=== PATIENT | female | born 1940 | race Caucasian/White ===

== ENCOUNTER 2017-02-21 10:09 | Emergency (ER) | payer MEDICARE, BC ==
[~2017-02-21] VITALS: Ht 160 cm; Wt 67.0 kg
[~2017-02-21 10:09] MED LIST: AMOX500T PO; ATEN1TAB73 PO; DARV PO; ESTR.3 PO; LISI10TA PO; OXYM.05%I
[2017-02-21 10:21] VITALS: BP 156/72; PULSE 57; RESP 16; TEMP 98; O2SAT 97
--- NOTE | 2017-02-21 10:44 | PD ---
HPI Chief Complaint: Respiratory Symptoms Time Seen by Provider: 10:30 Travel History International Travel<30 days: No Contact w/Intl Traveler<30days: No Traveled to known affect area: No History of Present Illness HPI This 76-year-old female is complaining of his been exertion. She first noticed it during the summer when she would walk on a hill to get her mail. 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 When she moved down here she was doing a lot of yard work in the heat she would notice it at times she would get quite short of breath. She would lay down and cool off and her breathing would improve. She has not had any edema. She does not have PND or orthopnea. There is a family history of heart disease but she has never had any heart disease. Her only medication is atenolol and simvastatin. She had some discomfort in her neck bilaterally. She was a light smoker and has not smoked since 2008. She initially said she was only on Tenormin 75 mg daily however she now thinks that she also takes a lisinopril/hydrochlorothiazide tablet PFSH Past Medical History Blood Disorders: No Heart Rhythm Problems: No Cancer: No Cardiovascular Problems: Yes High Cholesterol: No Chest Pain: No Congestive Heart Failure: No Endocrine: No GERD: No Glaucoma: No Genitourinary: No Hepatitis: No Hiatal Hernia: No Hypertension: Yes Musculoskeletal: Yes Neurologic: No Psychiatric: No Reproductive: No Respiratory: No Myocardial Infarction: No Ulcer: No Menopausal: Yes : 2 Para: 2 Past Surgical History AICD: No Appendectomy: No Arteriovenous Shunt: No Cholecystectomy: No Insulin Pump: No Joint Replacement: No Pacemaker: No Social History Alcohol Use: Yes (once weekly) Tobacco Use: No Substance Use: No Allergies-Medications (Allergen,Severity, Reaction): Coded Allergies: Sulfa (Sulfonamide Antibiotics) (Unverified Allergy, Intermediate, Rash, 02/21/17) Reported Meds & Prescriptions Reported Meds & Active Scripts Active Reported Simvastatin 20 Mg Tab 25 Mg PO DAILY Atenolol 100 Mg Tab 75 Mg PO DAILY Review of Systems General / Constitutional: No: Fever, Chills Eyes: No: Diploplia, Blurred Vision HENT: Positive: Neck Pain, No: Headaches, Sore Throat Cardiovascular: No: Chest Pain or Discomfort, Palpitations Respiratory: Positive: Shortness of Breath, No: Cough, Orthopnea, Hemoptysis Gastrointestinal: No: Vomiting, Diarrhea Genitourinary: No: Urgency, Frequency Musculoskeletal: No: Myalgias, Arthralgias Skin: No Rash Neurologic: No: Weakness, Dizziness Hematologic/Lymphatic: No: Easy Bruising Physical Exam Narrative GENERAL: Well-developed female SKIN: Focused skin assessment warm/dry. HEAD: Atraumatic. Normocephalic. EYES: Pupils equal and round. No scleral icterus. No injection or drainage. ENT: No nasal bleeding or discharge. Mucous membranes pink and moist. NECK: Trachea midline. No JVD. CARDIOVASCULAR: Regular rate and rhythm. No murmur appreciated. RESPIRATORY: No accessory muscle use. Clear to auscultation. Breath sounds equal bilaterally. GASTROINTESTINAL: Abdomen soft, non-tender, nondistended. Hepatic and splenic margins not palpable. MUSCULOSKELETAL: No obvious deformities. No clubbing. No cyanosis. No edema. NEUROLOGICAL: Awake and alert. No obvious cranial nerve deficits. Motor grossly within normal limits. Normal speech. PSYCHIATRIC: Appropriate mood and affect; insight and judgment normal. Data Data Last Documented VS Vital Signs Date Time Temp Pulse Resp B/P (MAP) Pulse Ox O2 Delivery O2 Flow Rate FiO2 02/21/17 10:21 98.0 57 16 156/72 (100) 97 Orders Orders Electrocardiogram (02/21/17 10:39) Complete Blood Count With Diff (02/21/17 10:39) Comprehensive Metabolic Panel (02/21/17 10:39) B-Type Natriuretic Peptide (02/21/17 10:39) Chest, Pa & Lat (02/21/17 10:39) Labs Laboratory Tests Test 02/21/17 10:50 White Blood Count 5.6 TH/MM3 Red Blood Count 4.24 MIL/MM3 Hemoglobin 12.9 GM/DL Hematocrit 38.3 % Mean Corpuscular Volume 90.2 FL Mean Corpuscular Hemoglobin 30.4 PG Mean Corpuscular Hemoglobin Concent 33.6 % Red Cell Distribution Width 13.3 % Platelet Count 260 TH/MM3 Mean Platelet Volume 7.8 FL Neutrophils (%) (Auto) 67.6 % Lymphocytes (%) (Auto) 17.9 % Monocytes (%) (Auto) 11.1 % Eosinophils (%) (Auto) 2.6 % Basophils (%) (Auto) 0.8 % Neutrophils # (Auto) 3.9 TH/MM3 Lymphocytes # (Auto) 1.0 TH/MM3 Monocytes # (Auto) 0.6 TH/MM3 Eosinophils # (Auto) 0.1 TH/MM3 Basophils # (Auto) 0.0 TH/MM3 CBC Comment DIFF FINAL Differential Comment Blood Urea Nitrogen 19 MG/DL Creatinine 0.96 MG/DL Random Glucose 87 MG/DL Total Protein 7.7 GM/DL Albumin 3.9 GM/DL Calcium Level 8.2 MG/DL Alkaline Phosphatase 75 U/L Aspartate Amino Transf (AST/SGOT) 18 U/L Alanine Aminotransferase (ALT/SGPT) 23 U/L Total Bilirubin 0.7 MG/DL Sodium Level 133 MEQ/L Potassium Level 4.1 MEQ/L Chloride Level 99 MEQ/L Carbon Dioxide Level 28.3 MEQ/L Anion Gap 6 MEQ/L Estimat Glomerular Filtration Rate 57 ML/MIN B-Type Natriuretic Peptide 119 PG/ML MDM Medical Decision Making Medical Screen Exam Complete: Yes Emergency Medical Condition: Yes Medical Record Reviewed: Yes Differential Diagnosis Differential includes CHF, COPD, pulmonary hypertension Narrative Course CBC and Chem-7 are unremarkable. Her EKG shows a sinus rhythm at a rate of 50. Chest x-ray does show some flattening of the diaphragm. I suspect that her bradycardia may be contributing to her dyspnea on exertion as a beta gabriela may prevent her from developing increased heart rate in response to exertion. I will recommend that she cut her Tenormin to 50 milligrams daily and will substitute 20 mg of lisinopril Diagnosis Primary Impression: Dyspnea on exertion Additional Instructions: Decreased Tenormin to 50 mg daily, add lisinopril 20 mg daily Scripts Lisinopril (Lisinopril) 20 Mg Tab 20 MG PO DAILY, #30 TAB 0 Refills Prov: Zeb Edge MD 02/21/17 Disposition: 01 DISCHARGE HOME Condition: Stable Zeb Edge MD Feb 21, 2017 10:44
[2017-02-21] MEDS ORDERED: ATEN100T PO (10:53)
[2017-02-21] MEDS ORDERED: SIMV20TA PO (10:53)
[2017-02-21 11:06] LABS: AUTOMATED NEUTROPHIL # 3.9 TH/MM3 (1.8-7.7); BASOPHIL % 0.8 % (0.0-2.0); EOSINOPHIL # 0.1 TH/MM3 (0-0.4); EOSINOPHIL % 2.6 % (0.0-4.0); HEMATOCRIT 38.3 % (35.0-46.0); HEMO FLAGS DIFF FINAL; LYMPH % 17.9 % (9.0-44.0); MEAN CELL VOLUME 90.2 FL (80.0-100.0); MEAN CORPUSCULAR HEMOGLOBIN 30.4 PG (27.0-34.0); MEAN CORPUSCULAR HGB CONC 33.6 % (32.0-36.0); MONO % 11.1 % (0.0-8.0); NEUT % 67.6 % (16.0-70.0); PLATELET COUNT 260 TH/MM3 (150-450); RED BLOOD COUNT 4.24 MIL/MM3 (4.00-5.30); RED CELL DISTRIBUTION WIDTH 13.3 % (11.6-17.2); WHITE BLOOD COUNT 5.6 TH/MM3 (4.0-11.0)
[2017-02-21 11:09] LABS: CHLORIDE 99 MEQ/L (98-107); POTASSIUM 4.1 MEQ/L (3.5-5.1); SODIUM (NA) 133 MEQ/L (136-145)
[2017-02-21 11:13] LABS: ANION GAP 6 MEQ/L (5-15); BICARBONATE 28.3 MEQ/L (21.0-32.0); BLOOD UREA NITROGEN 19 MG/DL (7-18)
[2017-02-21 11:16] LABS: ALT (GPT) 23 U/L (10-53); AST (GOT) 18 U/L (15-37); GLOMERULAR FILTRATION RATE 57 ML/MIN (>89)
[2017-02-21 11:17] LABS: TOTAL BILIRUBIN ADULT 0.7 MG/DL (0.2-1.0)
[2017-02-21 11:19] LABS: ALKALINE PHOSPHATASE 75 U/L (45-117)
[2017-02-21 11:40] VITALS: BP 146/75; PULSE 51; RESP 18; TEMP 98.1; O2SAT 95
[2017-02-21] MEDS ORDERED: LISI-515 PO (11:42)
--- NOTE | 2017-02-21 11:45 | RADRPT ---
EXAM DATE/TIME: 02/21/2017 11:03 [facility] COMPARISON: No previous studies available for comparison. INDICATIONS : Short of breath. MEDICAL HISTORY : Hypertension. SURGICAL HISTORY : None. ENCOUNTER: Initial ACUITY: 3 months PAIN SCORE: 0/10 LOCATION: Bilateral chest FINDINGS: PA and lateral views of the chest demonstrate the lungs to be symmetrically aerated without evidence of mass, infiltrate or effusion. There is hyperaeration bilaterally with chronic interstitial changes . There is a small granuloma in the right upper lung. The cardiomediastinal contours are unremarkabl e. Osseous structures are intact. CONCLUSION: No acute disease. Evidence of previous granulomatous disease. COPD. Francois Conte MD on February 21, 2017 at 11:43 Board Certified Radiologist. This report was verified electronically.
--- NOTE | 2017-02-22 10:05 | EKG ---
Date Performed: 02/21/2017 Time Performed: 10:54:39 PTAGE: 76 years EKG: SINUS BRADYCARDIA BORDERLINE ECG PREVIOUS TRACING : 06/21/2007 00.44 DOCTOR: Marshall Ohara Interpretating Date/Time 02/22/2017 10:05:11
== END 2017-02-21 12:10 | disposition home or self-care (01) ==
LOC: PHED 10:09
DX: J44.9 Chronic obstructive pulmonary disease, unspecified (principal); R00.1 Bradycardia, unspecified; I10 Essential (primary) hypertension; Z87.891 Personal history of nicotine dependence
CPT/HCPCS: 71020; 80053; 83880; 85025; 93005; 99285